=== PATIENT | female | born 1940 | race African-American/Black ===

== ENCOUNTER 2020-05-08 15:24 | Emergency (ER) | payer MEDICARE ==
[~2020-05-08] VITALS: Ht 157.5 cm; Wt 115.0 kg
[~2020-05-08 15:24] MED LIST: ALBU2.5V8 IH; AMOX500C PO; CARV25TA2 PO; DILT60TA3 PO; ESCITALOPRAM OX20 MG PO; ESOM40CA PO; FLUC150T2 PO; FLUT1DIS3 IH; HYDR-2868 PO; HYDR-3164 PO; ISOS30TA68 PO; MONT10TA49 PO; NAPR-514 PO; NITR0.4T24 SL; POTA10TA31 PO; SIMV20TA18 PO; TRAM50TA PO; TRIA15CR TP
--- NOTE | 2020-05-08 16:36 | RAD ---
Three-view left knee study Clinical indications: Fall and pain. FINDINGS: Total left knee arthroplasty is evident which is well aligned. No acute fracture or lytic p rocess is seen. No left knee joint effusion is seen radiographically. IMPRESSION: No acute fracture. Electronically signed by: Faustino Charles MD (05/08/2020 4:34 PM) [id number]
--- NOTE | 2020-05-08 16:36 | RAD ---
Exam: Pelvis with bilateral hips INDICATION: Fall TECHNIQUE: Frontal view of the pelvis with frontal view of the right left hip. Frog-leg lateral views the left hip. Comparisons: 12/14/2017 FINDINGS: Right hip arthroplasty changes are noted. Bone mineralization is normal. No acute or healed fractures . Severe degenerative change at the left hip joint. IMPRESSION: No acute osseous abnormality. If the patient is acutely unable to bear weight cross-sectional imaging to rule out acute fractures recommended. Electronically signed by: Khoi Osullivan MD (05/08/2020 4:33 PM) COURTNEY
[2020-05-08 16:41] LABS: BASO % 0 % (0-3); EOS # 0.1 x10^3/uL (0.0-0.7); EOS % 1 % (0-3); HEMATOCRIT 32.9 % (36.0-47.0); HEMOGLOBIN 10.3 g/dL (12.0-15.5); LYMPH # 1.7 x10^3/uL (1.0-4.8); LYMPH % 16 % (24-48); MEAN CORPUSCULAR HEMOGLOBIN 24 pg (25-35); MEAN CORPUSCULAR HGB CONC 31 g/dL (31-37); MEAN CORPUSCULAR VOLUME 76 fL (79-100); MONO # 1.1 x10^3/uL (0.0-1.1); MONO % 10 % (0-9); NEUT # 7.5 x10^3/uL (1.8-7.7); NEUT % 72 % (31-73); PLATELET COUNT 281 x10^3/uL (140-400); RED BLOOD COUNT 4.32 x10^6/uL (3.50-5.40); RED CELL DISTRIBUTION WIDTH 17.8 % (11.5-14.5); WHITE BLOOD COUNT 10.3 x10^3/uL (4.0-11.0)
[2020-05-08 16:50] LABS: PROTHROMBIN TIME PATIENT 19.9 SEC (11.7-14.0)
[2020-05-08 16:52] LABS: CREATININE 1.6 mg/dL (0.6-1.0); GFR 37.6; POTASSIUM 4.1 mmol/L (3.5-5.1)
[2020-05-08 16:58] LABS: ALBUMIN 3.4 g/dL (3.4-5.0); ALBUMIN/GLOBULIN RATIO 0.8 (1.0-1.7); TOTAL BILIRUBIN 0.4 mg/dL (0.2-1.0); TOTAL PROTEIN 7.6 g/dL (6.4-8.2)
--- NOTE | 2020-05-08 18:27 | PHYS DOC ---
Past Medical History Past Medical History: Arthritis, Arrhythmia, CHF, GERD, Glaucoma, High Cholesterol, Hypertension, Kidney Stone, Other Additional Past Medical Histor: cardiomyopathy (ANTONY OSPINA DO) Past Surgical History: Cholecystectomy, Hysterectomy, Knee Replacement, Tubal ligation, Other Additional Past Surgical Histo: hernia,carpal tunnel, breast biopsy; bilateral knee; R hip (ANTONY OSPINA DO) Smoking Status: Never Smoker Alcohol Use: None Drug Use: None (ANTONY OSPINA DO) General Adult EDM: Chief Complaint: MECHANICAL FALL HPI: HPI: 79-year-old female with multiple comorbidities (obesity, prediabetes, A. fib on Coumadin, hypertension, etc.) presents to the ED with complaints of sharp, nonradiating, localized left hip pain after patient had an accidental fall on Thursday. Patient reports she lost her balance and fell on her right flexed knee, hit her left hip on the couch. Reports history of right total hip replacement and is concerned she may have injured her left hip. Is weightbearing on this leg while using a cane and walker. Reports Tylenol helps calm down the pain. Reports she is using "10's" to help with her pain, described this as a "machine with electric things that shock." Reports she did not hit her head or lose consciousness. Believes her last Coumadin level was around 2. Reports mild ttp over left knee, no pain over right knee. (ANTONY OSPINA DO) HPI: Patient is a 79-year-old female with history of atrial fibrillation presents [facility] after a fall. Patient had a fall on May 05. She got up from her chair and lost her balance falling. She fell onto her right knee and then onto her left hip. Patient has had left hip and knee pain since then. She has been able to ambulate. Patient has had total hip arthroplasty by Dr. Ackerman on the right hip. Patient reports pain in the anterior lateral portion of the left hip. Worse with range of motion. Patient has been able to bear weight. Patient denies head injury. No loss of consciousness. No neck or back pain. No pain in the tib-fib ankle or foot bilaterally. No pain in the right hip or leg. Patient has been eating and drinking normally. No chest pain shortness of breath numbness weakness. Patient reports compliance with medications. (MIGDALIA RICO DO) Review of Systems: Review of Systems: Constitutional: Denies fever or chills. [] Eyes: Denies change in visual acuity. [] HENT: Denies nasal congestion or sore throat. [] Respiratory: Denies cough or shortness of breath. [] Cardiovascular: Denies chest pain or edema. [] GI: Denies abdominal pain, nausea, vomiting, bloody stools or diarrhea. [] : Denies dysuria, hematuria, saddle anesthesia, urine or bowel retention or incontinence Musculoskeletal: Denies midline back pain or joint swelling Integument: Denies rash or diaphoresis Neurologic: Denies headache, midline neck pain, focal weakness or sensory changes. [] Endocrine: Denies polyuria or polydipsia. [] Lymphatic: Denies swollen glands. [] Psychiatric: Denies depression or anxiety. [] (ATNONY OSPINA DO) Heart Score: C/O Chest Pain: No Risk Factors: Risk Factors: DM, Current or recent (<one month) smoker, HTN, HLP, family history of CAD, obesity. Risk Scores: Score 0 - 3: 2.5% MACE over next 6 weeks - Discharge Home Score 4 - 6: 20.3% MACE over next 6 weeks - Admit for Clinical Observation Score 7 - 10: 72.7% MACE over next 6 weeks - Early Invasive Strategies (ANTONY OSPINA DO) Allergies: Allergies: Allergies Coded Allergies Type Severity Reaction Last Updated Verified adenosine Allergy Intermediate 07/02/14 Yes iohexol Allergy Intermediate iv dye 07/02/14 Yes metoprolol Allergy Intermediate 07/02/14 Yes Sulfa (Sulfonamide Antibiotics) Allergy Unknown 07/02/14 No lisinopril Allergy Unknown angioedema 07/02/14 No olmesartan Allergy Unknown hyperkalemia 07/02/14 No oxycodone Allergy Unknown 07/02/14 No tramadol Allergy Unknown 07/02/14 No (ANTONY OSPINA DO) Physical Exam: PE: Constitutional: Well developed, well nourished, no acute distress, non-toxic appearance. HENT: Normocephalic, atraumatic, Eyes: EOMI, conjunctiva normal, no discharge. Neck: Normal range of motion, supple, Cardiovascular: S1/2 present, regular rhythm Lungs & Thorax: Speaking in full sentences, bilateral equal chest rise, no t achypnea or increased work of breathing Abdomen: soft, no tenderness, pain is localized to left proximal hip-cannot reproduce, patient tolerated straight leg raise of left lower extremity, no obvious deformity although patient is obese, no ASIS or pubic discomfort Skin: Warm, dry, no erythema, no rash. [] Back: No midline tenderness or step-offs, no CVA tenderness. [] Extremities: No tenderness, no cyanosis, no lower extremity edema, DP/PT pulses intact bl, left knee w/vertical scar-no deformity Neurologic: Alert and oriented X 3, normal motor function, normal sensory function, no focal deficits noted. [] Psychologic: Affect normal, judgement normal, mood normal. [] (ANTONY OSPINA DO) PE: *GENERAL APPEARANCE: Awake and alert. Cooperative. No acute distress. Non toxic appearing. HEAD: Normocephalic. Atraumatic. EYES: EOM's grossly intact. Sclera anicteric. Conjunctiva clear ENT:. Airway patent. Mucous membranes moist. No trismus. Tolerating secretions. NECK: Supple. Trachea midline. HEART: Regular rate and rhythm. Radial pulses 2+. Good capillary refill. LUNGS: Respirations unlabored. Clear to auscultation bilaterally. No rales, rhonchi, wheezing or retractions. ABDOMEN: Soft. Non-tender. No guarding or rebound. No CVA tenderness. No palpable or pulsatile mass. EXTREMITIES: No acute deformities. No edema, erythema or calf tenderness. Lower extremity: Mild tenderness palpation over the anterior lateral portion of the left hip. There is no ecchymosis edema or erythema. Compartments are all soft. Mild tenderness palpation over the left knee. No ecchymosis or edema. Pulses sensation muscle strength range of motion and capillary refill are all normal in the bilateral lower extremities. ROM normal bilateral lower extremi ties. Back: No tenderness palpation of the cervical, thoracic or lumbar spine. pelvis stable. SKIN: Warm and dry. No rash. NEUROLOGICAL: Alert and oriented x3. No gross neurological deficits. Moves all 4 extremities spontaneously. PSYCHIATRIC: Normal mood. (MIGDALIA RICO DO) Current Patient Data: Labs: Laboratory Tests Test 05/08/20 16:35 White Blood Count 10.3 x10^3/uL (4.0-11.0) Red Blood Count 4.32 x10^6/uL (3.50-5.40) Hemoglobin 10.3 g/dL (12.0-15.5) L Hematocrit 32.9 % (36.0-47.0) L Mean Corpuscular Volume 76 fL (79-100) L Mean Corpuscular Hemoglobin 24 pg (25-35) L Mean Corpuscular Hemoglobin Concent 31 g/dL (31-37) Red Cell Distribution Width 17.8 % (11.5-14.5) H Platelet Count 281 x10^3/uL (140-400) Neutrophils (%) (Auto) 72 % (31-73) Lymphocytes (%) (Auto) 16 % (24-48) L Monocytes (%) (Auto) 10 % (0-9) H Eosinophils (%) (Auto) 1 % (0-3) Basophils (%) (Auto) 0 % (0-3) Neutrophils # (Auto) 7.5 x10^3/uL (1.8-7.7) Lymphocytes # (Auto) 1.7 x10^3/uL (1.0-4.8) Monocytes # (Auto) 1.1 x10^3/uL (0.0-1.1) Eosinophils # (Auto) 0.1 x10^3/uL (0.0-0.7) Basophils # (Auto) 0.0 x10^3/uL (0.0-0.2) Prothrombin Time 19.9 SEC (11.7-14.0) H Prothrombin Time INR 1.7 (0.8-1.1) H Activated Partial Thromboplast Time 46 SEC (24-38) H Sodium Level 141 mmol/L (136-145) Potassium Level 4.1 mmol/L (3.5-5.1) Chloride Level 103 mmol/L (98-107) Carbon Dioxide Level 31 mmol/L (21-32) Anion Gap 7 (6-14) Blood Urea Nitrogen 37 mg/dL (7-20) H Creatinine 1.6 mg/dL (0.6-1.0) H Estimated GFR (Cockcroft-Gault) 37.6 BUN/Creatinine Ratio 23 (6-20) H Glucose Level 108 mg/dL (70-99) H Calcium Level 9.0 mg/dL (8.5-10.1) Total Bilirubin 0.4 mg/dL (0.2-1.0) Aspartate Amino Transferase (AST) 13 U/L (15-37) L Alanine Aminotransferase (ALT) 17 U/L (14-59) Alkaline Phosphatase 129 U/L (46-116) H Total Protein 7.6 g/dL (6.4-8.2) Albumin 3.4 g/dL (3.4-5.0) Albumin/Globulin Ratio 0.8 (1.0-1.7) L Laboratory Tests 05/08/20 16:35 Laboratory Tests 05/08/20 16:35 Vital Signs: Vital Signs Date Time Temp Pulse Resp B/P (MAP) Pulse Ox O2 Delivery O2 Flow Rate FiO2 05/08/20 15:40 98.4 69 20 143/67 (92) 96 Room Air 98.4 (ANTONY OSPINA DO) EKG: EKG: Sinus rhythm at 70 bpm, no axis deviation, first-degree AV block with NC 212, QTC 437, T wave inversion lead III, no ST elevations or ST depressions, patient with no active chest pain (ANTONY SOPINA DO) EKG: EKG interpretation shows sinus rhythm ventricular rate of 70 bpm. NC interval 212 ms. QRS duration is 98 ms. QTc [address] segment elevations. T wave inversion in lead III. Compared to EKG in 2015 that appears similar. (MIGDALIA RICO DO) Radiology/Procedures: Radiology/Procedures: []IMAGING REPORT Signed PATIENT: HERBER HOFFMAN ACCOUNT: [id number] : 1940 LOCATION: ER AGE: 79 SEX: F EXAM STATUS: REG ER ORD. PHYSICIAN: ANTONY OSPINA DO REASON: fall PROCEDURE: HIP LEFT 2V WITH PELVIS Exam: Pelvis with bilateral hips INDICATION: Fall TECHNIQUE: Frontal view of the pelvis with frontal view of the right left hip. Frog-leg lateral views the left hip. Comparisons: 12/14/2017 FINDINGS: Right hip arthroplasty changes are noted. Bone mineralization is normal. No acute or healed fractures. Severe degenerative change at the left hip joint. IMPRESSION: No acute osseous abnormality. If the patient is acutely unable to bear weight cross-sectional imaging to rule out acute fractures recommended. Electronically signed by: Khoi Gates MD (05/08/2020 4:33 PM) DARRYNGEREMIAS DICTATED and SIGNED BY: KHOI GATES MD DATE: 05/08/20 [id number] 0 IMAGING REPORT Signed PATIENT: HERBER HOFFMAN ACCOUNT: [id number] : 1940 LOCATION: ER AGE: 79 SEX: F EXAM STATUS: REG ER ORD. PHYSICIAN: ANTONY OSPINA DO REASON: fall PROCEDURE: HIP LEFT 2V WITH PELVIS Exam: Pelvis with bilateral hips INDICATION: Fall TECHNIQUE: Frontal view of the pelvis with frontal view of the right left hip. Frog-leg lateral views the left hip. Comparisons: 12/14/2017 FINDINGS: Right hip arthroplasty changes are noted. Bone mineralization is normal. No acute or healed fractures. Severe degenerative change at the left hip joint. IMPRESSION: No acute osseous abnormality. If the patient is acutely unable to bear weight cross-sectional imaging to rule out acute fractures recommended. Electronically signed by: Khoi Gates MD (05/08/2020 4:33 PM) COURT[facility] DICTATED and SIGNED BY: KHOI GATES MD DATE: 05/08/20 [id number] 0 (ANTONY OSPINA DO) Radiology/Procedures: PROCEDURE: CT HEAD AND CERVICAL SPINE WO Exam: CT head and cervical spine INDICATION: Dizziness, fall TECHNIQUE: Sequential axial images through the head and cervical spine were obtained without the administration of IV contrast. Comparisons: None FINDINGS: Head: No focal parenchymal lesion or hemorrhage is identified. There is no midline shift or sulcal effacement. No acute vascular territory infarction is identified. Eckert-white distinction is preserved. The ventricular system is within normal limits without compression hydrocephalus. The basal cisterns are well maintained. The visualized portions of the paranasal sinuses and mastoid air cells are well- pneumatized. No acute fractures. Cervical spine: Straightening of the cervical spine which may may be positional. Fracture to the cervical spine is not identified. Mild multilevel spondylotic change in cervical spine with degenerative disease greatest at C5-C6. Visualized paraspinal soft tissues are unremarkable. IMPRESSION: 1. No acute intracranial abnormality. 2. Negative CT C-spine for acute traumatic injury. Exposure: One or more of the following in the visualized dose reduction techniques were utilized for this examination: 1. Automated exposure control 2. Adjustment of the MA and/or KV according to patient size Use of iterative of reconstructive technique Electronically signed by: Khoi Gates MD (05/08/2020 7:20 PM) DARRYNJACIEL DICTATED and SIGNED BY: KHOI GATES MD DATE: 05/08/20 [id number] 0 PROCEDURE: CT PELVIS WO CONTRAST Exam: CT pelvis without contrast INDICATION: Left hip pain status post fall on Thursday TECHNIQUE: Sequential axial images through the pelvis obtained without IV contrast. Sagittal and coronal reformatted images were reconstructed from the axial data and reviewed. Comparisons: None FINDINGS: Visualized intrapelvic structures are unremarkable. Bone mineralization is normal. Sacroiliac joints, symphysis are well-maintained. There is a right hip arthroplasty. Soft tissues of the visualized lower extremities are unremarkable. IMPRESSION: No fracture identified. If the patient is acutely unable to bear weight MRI to rule out occult hip fracture is recommended. Exposure: One or more of the following in the visualized dose reduction techniques were utilized for this examination: 1. Automated exposure control 2. Adjustment of the MA and/or KV according to patient size 3. Use of iterative of reconstructive technique Electronically signed by: Khoi Gates MD (05/08/2020 7:26 PM) DARRYN-JACIEL DICTATED and SIGNED BY: KHOI GATES MD DATE: 05/08/20 [id number] 0 PROCEDURE: KNEE LEFT 3V Three-view left knee study Clinical indications: Fall and pain. FINDINGS: Total left knee arthroplasty is evident which is well aligned. No acute fracture or lytic process is seen. No left knee joint effusion is seen radiographically. IMPRESSION: No acute fracture. Electronically signed by: Mati Charles MD (05/08/2020 4:34 PM) [id number] DICTATED and SIGNED BY: MATI CHARLES MD DATE: 05/08/20 [id number] 0 PROCEDURE: HIP LEFT 2V WITH PELVIS Exam: Pelvis with bilateral hips INDICATION: Fall TECHNIQUE: Frontal view of the pelvis with frontal view of the right left hip. Frog-leg lateral views the left hip. Comparisons: 12/14/2017 FINDINGS: Right hip arthroplasty changes are noted. Bone mineralization is normal. No acute or healed fractures. Severe degenerative change at the left hip joint. IMPRESSION: No acute osseous abnormality. If the patient is acutely unable to bear weight cross-sectional imaging to rule out acute fractures recommended. Electronically signed by: Khoi Gates MD (05/08/2020 4:33 PM) [facility] DICTATED and SIGNED BY: KHOI GATES MD DATE: 05/08/20 [id number] 0 (MIGDALIA RICO DO) Course & Med Decision Making: Course & Med Decision Making Pertinent Labs and Imaging studies reviewed. (See chart for details) Concern for blunt hip injury in elderly, obese female with OA (RF for fx). Patient is labs with CKD, subtherapeutic INR and chronic anemia (improved from prior). Radiologist recommending further imaging if patient has pain with weightbearing. Given history of Coumadin and prior right total hip replacement, CT of the head and cervical spine without contrast, CT of the pelvis without contrast ordered to evaluate for life-threatening pathology/left hip fracture requiring surgery. Pt HD stable, in no distress. Due to shift change patient was signed out to Dr. Patterson to follow-up these images, likely DC home if negative for any acute pathology. (ANTONY OSPINA DO) Course & Med Decision Making Medical decision making: This is a 79-year-old female signed out to me by Dr. Ospina at 1830. At the time of signout imaging was pending. I did evaluate the patient. She is complaining of left hip pain. She has been able to ambulate. Patient is neurovascularly intact in the bilateral lower extremities. CT head cervical spine CT the pelvis x-ray of the left hip and left knee showed no acute abnormalities. Patient is on Coumadin. INR subtherapeutic at 1.7. Creatinine slightly elevated 1.6. Last lab we have is in 2016 that was 1.1. Patient is currently asymptomatic besides having left hip pain. She has been able to bear weight. I discussed all the findings with the patient. She feels comfortable going home. I will give her a very small amount of pain medication. She is to take half a pill and to be nonambulatory prior to taking this medication. She has allergy to oxycodone but has been able to tolerate hydrocodone in the past. Patient's son is going to pick her up. She is instructed to call and schedule appointment with her orthopedic surgeon tomorrow. She reports she sees Dr. Ackerman, who is at another facility. I will give our orthopedic physician info as well. Patient feels comfortable with this plan. The patient is given strict emergency department return precautions and follow up information. They express a verbal understanding of my instructions. The patient is aware of any labs and imaging. All questions are answered and patient is stable at the time of discharge. (MIGDALIA RICO DO) Dragon Disclaimer: Dragon Disclaimer: This electronic medical record was generated, in whole or in part, using a voice recognition dictation system. (ANTONY OSPINA DO) Departure Departure Impression: Primary Impression: Left hip pain Additional Impressions: Renal insufficiency Accidental fall Left knee pain Disposition: 01 DC HOME SELF CARE/HOMELESS Condition: STABLE Referrals: CHRISTINE SWEET (PCP) Patient Instructions: Fall Prevention and Home Safety, Hip Injury, Knee Pain Scripts Hydrocodone Bit/Acetaminophen (HYDROCODONE-APAP 5-325 ) 1 Tab Tablet 0.5 TAB PO PRN Q6HRS PRN for PAIN, #5 TAB 0 Refills Prov: MIGDALIA RICO DO 05/08/20 ANTONY OSPINA DO May 08, 2020 18:27 MIGDALIA RICO DO May 08, 2020 19:39
--- NOTE | 2020-05-08 18:59 | EKG ---
[facility] [address] [place] [address] Test Date: 2020-05-08 Test Time: 15:51:59 Pat Name: HERBER HOFFMAN Department: Room: Gender: F Toe Lining Closer: JEMMA : 1940 Requested By: ANTONY OSPINA Order Number: [id number] Reading MD: Measurements Intervals [place] Rate: 70 P: -49 MO: 212 QRS: -30 QRSD: 98 T: -8 QT: 430 QTc: 467 Interpretive Statements SINUS RHYTHM ABNORMAL LEFT AXIS DEVIATION R-S TRANSITION ZONE IN V LEADS DISPLACED TO THE LEFT LEFT ANTERIOR FASCICULAR BLOCK CONSIDER LEFT VENTRICULAR HYPERTROPHY T ABNORMALITY IN INFERIOR LEADS ABNORMAL ECG RI6.02 No previous ECG available for comparison
--- NOTE | 2020-05-08 19:22 | RAD ---
Exam: CT head and cervical spine INDICATION: Dizziness, fall TECHNIQUE: Sequential axial images through the head and cervical spine were obtained without the admi nistration of IV contrast. Comparisons: None FINDINGS: Head: No focal parenchymal lesion or hemorrhage is identified. There is no midline shift or sulcal effaceme nt. No acute vascular territory infarction is identified. Eckert-white distinction is preserved. The ventricular system is within normal limits without compression hydrocephalus. The basal cisterns are well maintained. The visualized portions of the paranasal sinuses and mastoid air cells are well-pneumatized. No acute fractures. Cervical spine: Straightening of the cervical spine which may may be positional. Fracture to the cervical spine is not identified. Mild multilevel spondylotic change in cervical spine with degenerative disease greatest at C5-C6. Visualized paraspinal soft tissues are unremarkable. IMPRESSION: 1. No acute intracranial abnormality. 2. Negative CT C-spine for acute traumatic injury. Exposure: One or more of the following in the visualized dose reduction techniques were utilized for this examination: 1. Automated exposure control 2. Adjustment of the MA and/or KV according to patient size Use of iterative of reconstructive technique Electronically signed by: Khoi Osullivan MD (05/08/2020 7:20 PM) COURTNEY
--- NOTE | 2020-05-08 19:29 | RAD ---
Exam: CT pelvis without contrast INDICATION: Left hip pain status post fall on Thursday TECHNIQUE: Sequential axial images through the pelvis obtained without IV contrast. Sagittal and hemant nal reformatted images were reconstructed from the axial data and reviewed. Comparisons: None FINDINGS: Visualized intrapelvic structures are unremarkable. Bone mineralization is normal. Sacroiliac joints, symphysis are well-maintained. There is a right hip arthroplasty. Soft tissues of the visualized lower extremities are unremarkable. IMPRESSION: No fracture identified. If the patient is acutely unable to bear weight MRI to rule out occult hip fr acture is recommended. Exposure: One or more of the following in the visualized dose reduction techniques were utilized for this examination: 1. Automated exposure control 2. Adjustment of the MA and/or KV according to patient size 3. Use of iterative of reconstructive technique Electronically signed by: Khoi Osullivan MD (05/08/2020 7:26 PM) [facility]IAS
[2020-05-08 19:31] VITALS: BP 125/71
[2020-05-08] MEDS ORDERED: HYDR-2761 PO (20:03)
== END 2020-05-08 20:13 | disposition home or self-care (01) ==
LOC: ER 15:24
DX: M25.552 Pain in left hip (principal); M25.562 Pain in left knee; N28.9 Disorder of kidney and ureter, unspecified; R42 Dizziness and giddiness; G89.11 Acute pain due to trauma; K21.9 Gastro-esophageal reflux disease without esophagitis; E66.9 Obesity, unspecified; Z68.42 Body mass index [BMI] 45.0-49.9, adult; M54.2 Cervicalgia; I48.91 Unspecified atrial fibrillation; I11.0 Hypertensive heart disease with heart failure; I50.9 Heart failure, unspecified; E78.00 Pure hypercholesterolemia, unspecified; Z87.442 Personal history of urinary calculi; Z79.01 Long term (current) use of anticoagulants; Z96.641 Presence of right artificial hip joint; Z90.49 Acquired absence of other specified parts of digestive tract; Z90.710 Acquired absence of both cervix and uterus; Z98.51 Tubal ligation status; Z98.890 Other specified postprocedural states; Z88.1 Allergy status to other antibiotic agents; Z88.2 Allergy status to sulfonamides; Z88.5 Allergy status to narcotic agent; Z88.6 Allergy status to analgesic agent; Z88.4 Allergy status to anesthetic agent; Z88.8 Allergy status to other drugs, medicaments and biological substances; W18.39XA Other fall on same level, initial encounter; Y93.89 Activity, other specified; Y92.89 Other specified places as the place of occurrence of the external cause; Y99.8 Other external cause status
CPT/HCPCS: 36415; 70450; 72125; 72192; 73502; 73562; 80053; 85025; 85610; 85730; 93005; 99285-25